=== PATIENT | female | born 1960 | race African-American/Black ===

== ENCOUNTER 2016-09-19 13:56 | Emergency (ER) | payer OTHER ==
[2016-09-19] MEDS ORDERED: Acetaminophen 500 MG TAB ONE (14:45)
--- NOTE | 2016-09-19 15:14 | ERRECORD ---
[facility] EMERGENCY RECORD HPI HEAD INJURY (14:33 JROB) CHIEF COMPLAINT: Patient presents for evaluation of head injury. HISTORIAN: History provided by patient, 56 year old female was at work at [employer] when she was struck in the head by a piece of metal siding that had become dislodged in high winds. She was knocked backwards, but did not fall to the ground, did not lose consciousness. She suffered a bruise and scrape to the forehead. She does not take blood thinners. Denies neck or back pain. Last tetanus was , 5 yrs ago. MECHANISM OF INJURY: Mechanism of injury: Blunt trauma. LOCATION: Symptoms are localized, most severe in the frontal region. SEVERITY: Current severity of pain rated as 5/10. TIME COURSE: Sudden onset of symptoms, 3, hours prior to arrival. ASSOCIATED WITH: No associated dizziness, Associated with headache, Associated with injury, No associated loss of consciousness, Associated with nausea, no associated siezure, No associated vomiting. EXACERBATED BY: Patient's condition exacerbated by palpation. RELIEVED BY: Patient's condition relieved by nothing, Patient's condition relieved by nothing because patient has not tried anything for relief. ROS (14:36 JROB) CONSTITUTIONAL: Historian denies weakness. EYES: Historian denies vision changes. ENT: Historian denies epistaxis. CARDIOVASCULAR: Historian denies chest pain, denies syncope. RESPIRATORY: Historian denies shortness of breath. GI: Historian reports nausea, denies vomiting. MUSCULOSKELETAL: Historian denies back pain, denies neck pain. SKIN: abrasion. NEUROLOGIC: Historian reports headache, denies mental status changes. HEMO/LYMPHATIC: Historian denies abnormal blood clotting. ALLERGIC/IMMUNOLOGIC: Historian denies frequent infections. NOTES: All systems reviewed, negative except as described above. PAST MEDICAL HISTORY MEDICAL HISTORY: Flu vaccine up to date, Tetanus not up to date, Past medical history includes history of hyperlipidemia, high cholesterol, Past medical history includes history of hypertension. (14:04 CAWO) FEMALE SURGICAL HISTORY: Surgical history of appendectomy, Surgical history of orthopedic surgery, right leg, Surgical history of tubal ligation. (14:04 CAWO) PSYCHIATRIC HISTORY: No previous psychiatric history. (14:04 CAWO) SOCIAL HISTORY: Patient drinks every day, Patient denies drug use, Patient currently uses tobacco, smokes cigarettes, Lives at &a-1R&a+25V*p+0X*l0034X*c202B*c15G*c2P*p-0X&a-25V&a+1R Name: Penelope Ding : 1960 F56 MedRec: [id number] AcctNum: [id number] Prepared: Collette Sep 19, 2016 15:16 by Interface Page 1 of 3 pMD [facility] EMERGENCY RECORD home, with family. (14:04 CAWO) NOTES: Nursing records reviewed, Agree with nursing records, Medication list reviewed. (14:38 JROB) KNOWN ALLERGIES latex gloves penicillin G sodium Sulfa (Sulfonamide Antibiotics) CURRENT MEDICATIONS Crestor: TABLET : Strength - 10 mg : ORAL Patient Dose: uk. (14:03 CAWO) amLODIPine: TABLET : Strength - 10 mg : ORAL Patient Dose: unk mg Oral once a day. (14:04 CAWO) VITAL SIGNS VITAL SIGNS: BP: 185/86, Pulse: 103, Resp: 16, Temp: 98.8 (Oral), Pain: 5, O2 sat: 98 on Room Air, Time: 09/19/2016 14:01. (14:01 CAWO) BP: 163/73, Pulse: 102, Resp: 18, Temp: 98.8 (Oral), Pain: 4, O2 sat: 99 on Room Air, Time: 09/19/2016 14:58. (14:58 CAWO) PHYSICAL EXAM (14:36 JROB) CONSTITUTIONAL: Vital Signs Reviewed, Pulse, tachycardic, Blood pressure, hypertensive, Patient alert and oriented to person, place and time. HEAD: no Burns's sign, No racoon sign, No Lacerations, 1cm abrasion ro left frontal forehead with mild surrounding swelling and tenderness extending to mid frontal forehead. No depressions. No Scalp is otherwise non-tender, no tenderness over bony orbits bilaterally. EYES: Pupils equally round and reactive to light, Extraocular muscles intact. ENT: Pharynx exam normal, Mouth exam normal. NECK: Neck exam normal. RESPIRATORY CHEST: Breath sounds clear, No wheezing, No rales, No rhonchi. CARDIOVASCULAR: Cardiovascular assessment normal, Cardiovascular exam included findings of heart rate regular rate and rhythm. BACK: Back exam normal, Back exam included findings of normal inspection, no tenderness. UPPER EXTREMITY: Upper extremity exam normal, Upper extremity exam included findings of inspection normal, Motor strength normal, Sensation intact. LOWER EXTREMITY: Lower extremity exam normal, Lower extremity exam included findings of inspection normal, Motor strength normal, Sensation intact. NEURO: Neuro exam findings include patient oriented to person, &a-1R&a+25V*p+0X*m6024M*c202B*c15G*c2P*p-0X&a-25V&a+1R Name: Penelope Ding : 1960 F56 MedRec: [id number] AcctNum: [id number] Prepared: Collette Sep 19, 2016 15:16 by Interface Page 2 of 3 pMD [facility] EMERGENCY RECORD place and time, no focal motor deficits, no focal sensory deficits, no cerebellar deficits. SKIN: Skin exam included findings of skin warm, dry. MEDICATION ADMINISTRATION SUMMARY Drug Name: Tylenol Extra Strength, Dose Ordered: 1 g, Route: Oral, Status: Given, Time: 14:47 09/19/2016, Detailed record available in Medication Service section. DOCTOR NOTES TEXT: History and exam is consistent with forehead contusion with small abrasion. No concern for underlying skull fracture or brain injury. Patient reassured. History of HTN, takes BP meds at night. Hypertensive on arrival, mild tachycardia. Will give Tylenol for headache, reassess. She is otherwise asymptomatic with the HTN. (14:40 JROB) Reassessed, heart rate and blood pressure somewhat improved. Patient states that her heart rate is frequently around 100. Will d/c home to f/u in clinic. (15:00 JROB) PATIENT STATUS: Patient has improved since arrival to emergency department. (15:00 JROB) PATIENT PLAN: The patient will be discharged, The patient will follow up with primary care physician. (15:00 JROB) PROBLEM LIST No recorded problems DIAGNOSIS DIFFERENTIAL: Based on history, exam and ancillary studies if indicated: Impression: closed head injury, Impression: scalp contusion (s), Impression: Abrasion, Impression: asymptomatic hypertension, Impression: medication change/noncompliance, Diagnoses considered are not limited to those documented above. (15:01 JROB) FINAL: PRIMARY: Forehead Contusion, ADDITIONAL: Forehead Abrasion, Hypertension. (15:02 JROB) PRESCRIPTION No recorded prescriptions DISPOSITION PATIENT: Disposition Type: Discharge, Disposition: *Discharge Home. (15:02 JROB) Patient left the department. (15:10 CAWO) Kulkarni: CAWO=DANK Castle, Yuni JROB=MD Romero, Paco &a-1R&a+25V*p+0X*r7723P*c202B*c15G*c2P*p-0X&a-25V&a+1R Name: Penelope Ding : 1960 F56 MedRec: [id number] AcctNum: [id number] Prepared: Collette Sep 19, 2016 15:16 by Interface Page 3 of 3 pMD MTDD
--- NOTE | 2016-09-19 15:19 | PICIS ---
[facility] EMERGENCY RECORD TRIAGE (14:03 CAWO) TRIAGE NOTES: PT reports "metal piece" at work fell on the left frontal part of her head. NO LOC. (14:03 CAWO) PATIENT: NAME: Penelope Ding, AGE: 56, GENDER: female, : Tue1960, TIME OF GREET: Sun Sep 19, 2016 13:56, PREFERRED LANGUAGE: Amharic, ETHNICITY: Not or , ECODE BILLING MAP: [facility], SSN: [id number], Zip Code: [address], KG WEIGHT: 72.57, PHONE: , , , PERSON ID: [id number], PCP: MD Colindres Katherine. (14:03 CAWO) COMPLAINT: HIGH RISK COMPLAINT: Head Injury. (14:03 CAWO) ADMISSION: URGENCY: 4 Non Urgent, ADMISSION SOURCE: Home, TRANSPORT: CAR, BED: ER -05. (14:03 CAWO) IMMUNIZATIONS: Flu vaccine up to date, Tetanus not up to date, Pneumococcal vaccine not up to date. (14:04 CAWO) SIRS SCORING: Heart Rate 55-109 (0), Temp range 96.8-101.1 (0), respiratory rate 12-24 (0), Mental Status altered: no (0), Infection or Suspected Infection: No. (14:04 CAWO) TRIAGE SCREENING: Patient denies suicidal ideation, Patient denies presence of domestic violence. (14:04 CAWO) LMP: LMP: Menopause. (14:04 CAWO) TREATMENTS IN PROGRESS: Treatments given Prehospital: none. (14:04 CAWO) PROVIDERS: TRIAGE NURSE: Yuni Castle RN. (14:03 CAWO) VITAL SIGNS: BP 185/86, Pulse 103, Resp 16, Temp 98.8, (Oral), Pain 5, O2 Sat 98, on Room Air, Time 09/19/2016 14:01. (14:01 CAWO) PREVIOUS VISIT ALLERGIES: latex gloves, penicillin G sodium, Sulfa (Sulfonamide Antibiotics). (14:03 CAWO) latex gloves, penicillin G sodium, Sulfa (Sulfonamide Antibiotics). (14:04 CAWO) KNOWN ALLERGIES latex gloves penicillin G sodium Sulfa (Sulfonamide Antibiotics) CURRENT MEDICATIONS Crestor: TABLET : Strength - 10 mg : ORAL Patient Dose: uk. (14:03 CAWO) amLODIPine: TABLET : Strength - 10 mg : ORAL Patient Dose: unk mg Oral once a day. (14:04 CAWO) VITAL SIGNS VITAL SIGNS: BP: 185/86, Pulse: 103, Resp: 16, Temp: 98.8 (Oral), Pain: 5, O2 sat: 98 on Room Air, Time: 09/19/2016 14:01. (14:01 CAWO) BP: 163/73, Pulse: 102, Resp: 18, Temp: 98.8 (Oral), Pain: 4, O2 sat: 99 on Room Air, Time: 09/19/2016 14:58. (14:58 CAWO) &a-1R&a+25V*p+0X*o4495L*c202B*c15G*c2P*p-0X&a-25V&a+1R Name: Penelope Ding : 1960 F56 MedRec: [id number] AcctNum: [id number] Prepared: Collette Sep 19, 2016 15:15 by Interface Page 1 of 6 pMD [facility] EMERGENCY RECORD NURSING ASSESSMENT: HEADACHE (14:07 CAWO) CONSTITUTIONAL: Complex assessment performed, Patient arrives ambulatory, Gait steady, History obtained from patient, Patient appears comfortable, Patient cooperative, Patient alert, Oriented to person, place and time, Skin warm, Skin dry, Skin normal in color, Mucous membranes pink, Mucous membranes moist, Patient is well-groomed, Patient complains of head injury, PT arrives with c/o headache s/p being hit on the head by "a piece of metal". PT denies LOC. PT in nad. HEADACHE: Headache assessment findings include headache not worst of life, no history of migraines. NEURO: Pupils equally round and reactive to light, Able to close eyes, Face symmetrical, Speech normal, no ptosis, no nystagmus, no visual changes, no facial droop, no facial numbness, no swelling, no paresthesias, GCS:, Eye opening: (4) - Spontaneous, Verbal: (5) - Oriented/conversive, Motor: (6) - Obeys commands/Spontaneous, Upper extremity strength strong, no associated dizziness present, no associated fever, no associated memory loss, no associated loss of consciousness, no associated motor ability changes, no associated neck stiffness, no associated nausea, no associated alterations in sensation, no associated personality changes, no associated posturing, no associated seizures, no associated syncopal episode, no associated vomiting, no associated weakness, Notes: small wound to left front of forehead, less than 0.1 cm, bleeding controlled. ENT: Nasal assessment findings include nose normal to inspection, Sinuses normal, Nasal mucosa normal, Mouth and throat assessment findings include mouth inspection normal, Uvula normal, Tonsils normal, Mucous membranes pink, and moist, Able to swallow, Speech normal, no associated fever, Associated with headache, no associated decrease in oral intake. SAFETY: Side rails up, Cart/Stretcher in lowest position, Family at bedside, Call light within reach, Hospital ID band on. NURSING PROCEDURE: DISCHARGE NOTE (15:07 CAWO) DISCHARGE: Patient discharged to home, ambulating without assistance, family driving, accompanied by //partner, Summary of Care printed/ provided, Transition record given to patient, Discharge instructions given to patient, Simple or moderate discharge teaching performed, Above person(s) verbalized understanding of discharge instructions and follow-up care, Patient treated and evaluated by physician. BELONGINGS: Belongings and valuables with patient upon arrival to the Emergency Department include:, Belongings and valuables with patient at time of discharge include:, Belongings remain with patient, Valuables remain with patient. MEDICATION ADMINISTRATION SUMMARY &a-1R&a+25V*p+0X*y9703V*c202B*c15G*c2P*p-0X&a-25V&a+1R Name: Penelope Ding : 1960 F56 MedRec: [id number] AcctNum: [id number] Prepared: Collette Sep 19, 2016 15:15 by Interface Page 2 of 6 pMD [facility] EMERGENCY RECORD Drug Name: Tylenol Extra Strength, Dose Ordered: 1 g, Route: Oral, Status: Given, Time: 14:47 09/19/2016, Detailed record available in Medication Service section. MEDICATION SERVICE (14:47 JROB) Tylenol Extra Strength: Order: Tylenol Extra Strength (acetaminophen) - Dose: 1 g : Oral Schedule: Now Ordered by: Paco Jasso MD Entered by: MD Collette Rojas Sep 19, 2016 14:39 , Acknowledged by: DANK Vazquez Sep 19, 2016 14:43 Documented as given by: DANK Vazquez Sep 19, 2016 14:47 Patient, Medication, Dose, Route and Time verified prior to administration. Amount given: 1g, Site: Medication administered P.O., Correct patient, time, route, dose and medication confirmed prior to administration, Patient advised of actions and side-effects prior to administration, Allergies confirmed and medications reviewed prior to administration. HPI HEAD INJURY (14:33 JROB) CHIEF COMPLAINT: Patient presents for evaluation of head injury. HISTORIAN: History provided by patient, 56 year old female was at work at [employer] when she was struck in the head by a piece of metal siding that had become dislodged in high winds. She was knocked backwards, but did not fall to the ground, did not lose consciousness. She suffered a bruise and scrape to the forehead. She does not take blood thinners. Denies neck or back pain. Last tetanus was , 5 yrs ago. MECHANISM OF INJURY: Mechanism of injury: Blunt trauma. LOCATION: Symptoms are localized, most severe in the frontal region. SEVERITY: Current severity of pain rated as 5/10. TIME COURSE: Sudden onset of symptoms, 3, hours prior to arrival. ASSOCIATED WITH: No associated dizziness, Associated with headache, Associated with injury, No associated loss of consciousness, Associated with nausea, no associated siezure, No associated vomiting. EXACERBATED BY: Patient's condition exacerbated by palpation. RELIEVED BY: Patient's condition relieved by nothing, Patient's condition relieved by nothing because patient has not tried anything for relief. ROS (14:36 JROB) CONSTITUTIONAL: Historian denies weakness. EYES: Historian denies vision changes. ENT: Historian denies epistaxis. CARDIOVASCULAR: Historian denies chest pain, denies syncope. RESPIRATORY: Historian denies shortness of breath. GI: Historian reports nausea, denies vomiting. &a-1R&a+25V*p+0X*z1934M*c202B*c15G*c2P*p-0X&a-25V&a+1R Name: Penelope Ding : 1960 F56 MedRec: [id number] AcctNum: [id number] Prepared: Collette Sep 19, 2016 15:15 by Interface Page 3 of 6 pMD [facility] EMERGENCY RECORD MUSCULOSKELETAL: Historian denies back pain, denies neck pain. SKIN: abrasion. NEUROLOGIC: Historian reports headache, denies mental status changes. HEMO/LYMPHATIC: Historian denies abnormal blood clotting. ALLERGIC/IMMUNOLOGIC: Historian denies frequent infections. NOTES: All systems reviewed, negative except as described above. PAST MEDICAL HISTORY MEDICAL HISTORY: Flu vaccine up to date, Tetanus not up to date, Past medical history includes history of hyperlipidemia, high cholesterol, Past medical history includes history of hypertension. (14:04 CAWO) FEMALE SURGICAL HISTORY: Surgical history of appendectomy, Surgical history of orthopedic surgery, right leg, Surgical history of tubal ligation. (14:04 CAWO) PSYCHIATRIC HISTORY: No previous psychiatric history. (14:04 CAWO) SOCIAL HISTORY: Patient drinks every day, Patient denies drug use, Patient currently uses tobacco, smokes cigarettes, Lives at home, with family. (14:04 CAWO) NOTES: Nursing records reviewed, Agree with nursing records, Medication list reviewed. (14:38 JROB) PHYSICAL EXAM (14:36 JROB) CONSTITUTIONAL: Vital Signs Reviewed, Pulse, tachycardic, Blood pressure, hypertensive, Patient alert and oriented to person, place and time. HEAD: no Burns's sign, No racoon sign, No Lacerations, 1cm abrasion ro left frontal forehead with mild surrounding swelling and tenderness extending to mid frontal forehead. No depressions. No Scalp is otherwise non-tender, no tenderness over bony orbits bilaterally. EYES: Pupils equally round and reactive to light, Extraocular muscles intact. ENT: Pharynx exam normal, Mouth exam normal. NECK: Neck exam normal. RESPIRATORY CHEST: Breath sounds clear, No wheezing, No rales, No rhonchi. CARDIOVASCULAR: Cardiovascular assessment normal, Cardiovascular exam included findings of heart rate regular rate and rhythm. BACK: Back exam normal, Back exam included findings of normal inspection, no tenderness. UPPER EXTREMITY: Upper extremity exam normal, Upper extremity exam included findings of inspection normal, Motor strength normal, Sensation intact. LOWER EXTREMITY: Lower extremity exam normal, Lower extremity exam included findings of inspection normal, Motor strength normal, Sensation intact. &a-1R&a+25V*p+0X*x4112S*c202B*c15G*c2P*p-0X&a-25V&a+1R Name: Penelope Ding : 1960 F56 MedRec: [id number] AcctNum: [id number] Prepared: Collette Sep 19, 2016 15:15 by Interface Page 4 of 6 pMD [facility] EMERGENCY RECORD NEURO: Neuro exam findings include patient oriented to person, place and time, no focal motor deficits, no focal sensory deficits, no cerebellar deficits. SKIN: Skin exam included findings of skin warm, dry. EVENTS TRANSFER: Triage to Emergency Emergency Room -05. (Collette Sep 19, 2016 14:03 CAWO) Removed from Emergency Emergency Room -05. (15:10 CAWO) O2SAT INTERPRETATION (14:38 JROB) O2SAT: Single pulse oximetry, Oxygen saturation 98%, on room air, Oxygen saturation interpretation: Normal, No intervention required. DOCTOR NOTES TEXT: History and exam is consistent with forehead contusion with small abrasion. No concern for underlying skull fracture or brain injury. Patient reassured. History of HTN, takes BP meds at night. Hypertensive on arrival, mild tachycardia. Will give Tylenol for headache, reassess. She is otherwise asymptomatic with the HTN. (14:40 JROB) Reassessed, heart rate and blood pressure somewhat improved. Patient states that her heart rate is frequently around 100. Will d/c home to f/u in clinic. (15:00 JROB) PATIENT STATUS: Patient has improved since arrival to emergency department. (15:00 JROB) PATIENT PLAN: The patient will be discharged, The patient will follow up with primary care physician. (15:00 JROB) PROBLEM LIST No recorded problems DIAGNOSIS DIFFERENTIAL: Based on history, exam and ancillary studies if indicated: Impression: closed head injury, Impression: scalp contusion (s), Impression: Abrasion, Impression: asymptomatic hypertension, Impression: medication change/noncompliance, Diagnoses considered are not limited to those documented above. (15:01 JROB) FINAL: PRIMARY: Forehead Contusion, ADDITIONAL: Forehead Abrasion, Hypertension. (15:02 JROB) DISPOSITION PATIENT: Disposition Type: Discharge, Disposition: *Discharge Home. (15:02 JROB) Patient left the department. (15:10 CAWO) INSTRUCTION (15:03 JROB) DISCHARGE: HEAD INJURY, NO WAKE-UP (ADULT), HIGH BLOOD PRESSURE ESTABLISHED OUT OF CONTROL. &a-1R&a+25V*p+0X*h9683C*c202B*c15G*c2P*p-0X&a-25V&a+1R Name: TimurPenelope : 1960 6 MedRec: [id number] AcctNum: [id number] Prepared: Collette Sep 19, 2016 15:15 by Interface Page 5 of 6 pMD [facility] EMERGENCY RECORD FOLLOWUP: MD Jens, [facility], [address] [place] [address] [facility] [address], , Follow up with Primary Care Physician in 2-3 days. SPECIAL: Follow-up with your PCP We hope you feel better soon! We are always happy to take care of you and your family! Return to the ER immediately for any new, concerning, or worsening symptoms. PRESCRIPTION No recorded prescriptions IMAGING (15:10 CAWO) *DISCHARGE INSTRUCTIONS RECEIPT: Image captured from scanner. *SUPPLY CHARGE SHEET: Image captured from scanner. ADMIN (15:03 JROB) DIGITAL SIGNATURE: MD Jasso Joseph. Kulkarni: CAWO=DANK Castle, Yuni JROB=MD Jasso Joseph &a-1R&a+25V*p+0X*d3257Q*c202B*c15G*c2P*p-0X&a-25V&a+1R Name: SimonPenelope mendes : 1960 F56 MedRec: [id number] AcctNum: [id number] Prepared: Collette Sep 19, 2016 15:15 by Interface Page 6 of 6 pMD MTDD
== END 2016-09-19 15:05 | disposition home or self-care (01) ==
LOC: NAV ERS 13:56
DX: S00.83XA Contusion of other part of head, initial encounter (principal); I10 Essential (primary) hypertension; E78.5 Hyperlipidemia, unspecified; E78.00 Pure hypercholesterolemia, unspecified; F17.210 Nicotine dependence, cigarettes, uncomplicated; W22.8XXA Striking against or struck by other objects, initial encounter
CPT/HCPCS: 99283

== ENCOUNTER 2016-09-27 12:47 | Emergency (ER) | payer OTHER ==
[2016-09-27] MEDS ORDERED: Cyclobenzaprine 10 MG TAB ONE (13:39)
[2016-09-27] MEDS ORDERED: HYDROcodone/Acetaminophen 5/325 mg Tablet ONE (13:39)
[2016-09-27] MEDS ORDERED: Ketorolac Tromethamine 60 MG/2 ML VIAL ONE (13:39)
--- NOTE | 2016-09-27 14:34 | CT ---
EXAM: NONCONTRAST HEAD CT: HISTORY: The patient hit left side of alevism last week. The patient is having constant headaches. COMPARISON: None. TECHNIQUE: A noncontrast head CT is performed from the skull base to the skull vertex. FINDINGS: No parenchymal hemorrhage. No extraaxial hematoma. No midline shift. Basilar cisterns are patent. Age-appropriate atrophy. Cortical bobby-white matter differentiation is preserved. Ventricles and sulci are patent and symmetric. Hypoattenuation of the left helton radiata likely due to chronic small-vessel ischemic disease. Calvarium is intact. Adequate aeration of the sinuses and mastoid air cells. IMPRESSION: No acute intracranial process. No intracranial posttraumatic sequelae. POS: H
--- NOTE | 2016-09-27 15:14 | ERRECORD ---
[facility] EMERGENCY RECORD HPI HEAD INJURY (14:29 AGRE) CHIEF COMPLAINT: Patient presents for evaluation of head injury. HISTORIAN: History provided by patient, SOME METAL FELL AND HIT HER ON THE LEFT SIDE OF HER HEAD AT WORK LAST WEEK. NO LOC, VOMITING, CONFUSION OR OTHER NEURO SYMPTOMS EXCEPT HEADACHE. 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 HERE TODAY BECAUSE THE KEVIN IS WORST AND THE TYLENOL WITH CODEINE THEY GAVE HER IS NOT WORKING. NO NEW NEURO CHANGE. MECHANISM OF INJURY: Mechanism of injury: Blunt trauma, by direct blow. LOCATION: Symptoms are localized, most severe in the frontal region. QUALITY: Pain is dull in nature, described as aching, described as throbbing. SEVERITY: Maximum severity of symptoms moderate, Currently symptoms are moderate. TIME COURSE: are constant. ASSOCIATED WITH: No associated blurred vision, No associated dizziness, No associated fever, Associated with headache, Associated with injury, No associated loss of consciousness, No associated nausea, No associated numbness, No associated open wounds, [place] coma score of 15, Denies any other complaints. EXACERBATED BY: Patient's condition exacerbated by nothing. RELIEVED BY: Patient's condition relieved by nothing. ROS (14:32 AGRE) CONSTITUTIONAL: Historian denies chills, denies fever, denies lethargy, denies malaise. EYES: Historian denies eye pain, denies eye redness. ENT: Historian denies rhinorrhea, denies sinus pain, denies sore throat. CARDIOVASCULAR: Historian denies chest pain, denies dyspnea on exertion. RESPIRATORY: Historian denies cough, denies shortness of breath. GI: Historian denies abdominal pain, denies nausea, denies vomiting. MUSCULOSKELETAL: Historian denies back pain, denies neck pain. SKIN: Negative skin review of systems, Historian denies skin changes, denies skin lesions. NEUROLOGIC: Historian denies confusion, denies dizziness, denies dysphasia, denies focal weakness, denies gait changes, reports headache, denies lethargy, denies mental status changes, denies paralysis, denies paresthesias, denies seizures, denies sensory changes, denies speech changes. PSYCHIATRIC: Negative psychiatric review of systems, Historian denies anxiety. PAST MEDICAL HISTORY (13:11 GHIA) MEDICAL HISTORY: Notes: as lsited, Flu vaccine up to date, Tetanus not up to date, Past medical history includes &a-1R&a+25V*p+0X*c1202A*c202B*c15G*c2P*p-0X&a-25V&a+1R Name: Penelope Ding : 1960 F56 MedRec: [id number] AcctNum: [id number] Prepared: TueSep 27, 2016 14:41 by Interface Page 1 of 4 pMD [facility] EMERGENCY RECORD history of hyperlipidemia, high cholesterol, Past medical history includes history of hypertension. FEMALE SURGICAL HISTORY: as lsited, Surgical history of appendectomy, Surgical history of orthopedic surgery, right leg, Surgical history of tubal ligation. PSYCHIATRIC HISTORY: No previous psychiatric history, No previous psychiatric history. SOCIAL HISTORY: Social History includes lives with family, Patient drinks every day, Patient denies drug use, Patient currently uses tobacco, smokes cigarettes, Occasional or some day smoker, Patient drinks every day, Patient denies drug use, Patient currently uses tobacco, smokes cigarettes, Lives at home, with family. KNOWN ALLERGIES latex gloves (Unconfirmed) penicillin G sodium (Unconfirmed) Sulfa (Sulfonamide Antibiotics) (Unconfirmed) CURRENT MEDICATIONS No recorded medications VITAL SIGNS VITAL SIGNS: BP: 178/79, Pulse: 100, Resp: 17, Temp: 98.4 (Oral), Pain: 5, O2 sat: 96 on Room Air, Time: 09/27/2016 13:02. (13:02 GHIA) BP: 152/97, Pulse: 87, Resp: 17, Pain: 5, O2 sat: 95 on Room Air, Time: 09/27/2016 13:51. (13:51 GHIA) BP: 154/74, Pulse: 94, Resp: 17, Pain: 5, O2 sat: 95 on RA, Time: 09/27/2016 14:29. (14:29 GHIA) PHYSICAL EXAM (14:33 AGRE) CONSTITUTIONAL: Vital signs reviewed, Patient afebrile, Patient appears non toxic, Patient appears pain free, Patient alert and oriented to person, place and time, NURSES NOTES REVIEWED. HEAD: no Burns's sign, No racoon sign, contusion, Contusion to left frontal, no abrasions, No Lacerations. EYES: Pupils equally round and reactive to light, no periorbital ecchymosis, no periorbital edema, no periorbital erythema, Eye exam included findings of eyelids normal to inspection, Extraocular muscles intact, Conjunctiva normal, Sclera normal. ENT: Ear exam normal, Nose exam normal, Mouth exam normal. NECK: no tenderness, Neck exam included findings of normal range of motion, no meningeal signs. RESPIRATORY CHEST: Respiratory exam included findings of no respiratory distress, Breath sounds clear, Chest exam included findings of chest movement symmetrical. CARDIOVASCULAR: Cardiovascular exam included findings of heart rate regular rate and rhythm. BACK: Back exam included findings of normal inspection, range of motion normal. &a-1R&a+25V*p+0X*x2522I*c202B*c15G*c2P*p-0X&a-25V&a+1R Name: Penelope Ding Alec : 1960 F56 MedRec: [id number] AcctNum: [id number] Prepared: TueSep 27, 2016 14:41 by Interface Page 2 of 4 pMD [facility] EMERGENCY RECORD UPPER EXTREMITY: Upper extremity exam included findings of inspection normal, Range of motion normal. LOWER EXTREMITY: Lower extremity exam included findings of inspection normal, Range of motion normal. NEURO: Neuro exam normal, [place] coma scale 15, Neuro exam findings include patient oriented to person, place and time, Speech normal, Gait normal, Memory normal, Cranial nerves intact, Deep tendon reflexes normal, no focal motor deficits, no focal sensory deficits, no cerebellar deficits, no nystagmus. SKIN: Skin exam included findings of skin warm, dry, and normal in color. PSYCHIATRIC: Psychiatric exam normal, Normal affect. 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 MEDICATION ADMINISTRATION SUMMARY Drug Name: ketorolac intramuscular, Dose Ordered: 60 mg, Route: Intramuscular, Status: Given, Time: 13:49 09/27/2016, Drug Name: HYDROcodone-acetaminophen, Dose Ordered: 5/325 tab(s), Route: Oral, Status: Given, Time: 13:47 09/27/2016, Drug Name: Flexeril, Dose Ordered: 10 mg, Route: Oral, Status: Given, Time: 13:47 09/27/2016, Detailed record available in Medication Service section. DOCTOR NOTES (14:35 AGRE) TEXT: DISCUSSED WITH PATIENT AND PUBLIC INFORMATION COORDINATOR FINDINGS ON EXAM AND CT SCAN. ADVISED ON MANAGEMENT OF THE PAIN AND NEED FOR FOLLOW UP. ADVISED PAIN MAY BE FROM INFLAMMATION OF MUSCULATURE. SHE EXPRESSED UNDERSTANDING AND AGREEMENT. PATIENT STATUS: Patient has improved since arrival to emergency department. PATIENT PLAN: The patient will be discharged. DATA REVIEWED: Xray data reviewed, Discussed with family. PROBLEM LIST No recorded problems DIAGNOSIS (14:03 AGRE) FINAL: PRIMARY: POST TRAUMATIC CEPHALGIA. PRESCRIPTION (14:04 AGRE) Robaxin oral: TABLET : 500 mg : ORAL : Quantity: 2 Unit: tab(s) Route: ORAL Schedule: every 6 hours PRN Dispense: 40 May substitute. Refills: No Refills . NOTES: PRN MUSCLE SPASMS No Refills. &a-1R&a+25V*p+0X*i7237M*c202B*c15G*c2P*p-0X&a-25V&a+1R Name: Penelope Ding : 1960 F56 MedRec: [id number] AcctNum: [id number] Prepared: TueSep 27, 2016 14:41 by Interface Page 3 of 4 pMD [facility] EMERGENCY RECORD DISPOSITION PATIENT: Disposition Type: Discharge, Disposition: *Discharge Home, Condition: Improved. (14:03 TIANNA) Patient left the department. (14:35 MACARIO) Kulkarni: TIANNA=MD Livan, Reji SORTO=DANK Jack, Mona &a-1R&a+25V*p+0X*[id number]*c202B*c15G*c2P*p-0X&a-25V&a+1R Name: Penelope Ding : 1960 F56 MedRec: [id number] AcctNum: [id number] Prepared: TueSep 27, 2016 14:41 by Interface Page 4 of 4 pMD MTDD
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
== END 2016-09-27 14:29 | disposition home or self-care (01) ==
LOC: NAV ERS 12:47
DX: G44.309 Post-traumatic headache, unspecified, not intractable (principal); E78.00 Pure hypercholesterolemia, unspecified; E78.5 Hyperlipidemia, unspecified; I10 Essential (primary) hypertension; W20.8XXA Other cause of strike by thrown, projected or falling object, initial encounter; Y92.69 Other specified industrial and construction area as the place of occurrence of the external cause; Y99.0 Civilian activity done for income or pay
CPT/HCPCS: 70450; 96372; J1885

== ENCOUNTER 2017-06-07 15:29 | Emergency (ER) | payer BC, OTHER ==
[2017-06-07] MEDS ORDERED: predniSONE 20 MG TAB ONE (15:48)
[2017-06-07] MEDS ORDERED: diphenhydrAMINE HCl 50 MG/ML 1 ML VIAL ONE (15:48)
== END 2017-06-07 16:32 | disposition home or self-care (01) ==
LOC: NAV ERS 15:29
DX: T78.40XA Allergy, unspecified, initial encounter (principal); E78.5 Hyperlipidemia, unspecified; I10 Essential (primary) hypertension; F17.210 Nicotine dependence, cigarettes, uncomplicated; Z79.899 Other long term (current) drug therapy
CPT/HCPCS: 96372; J1200; J7506

== ENCOUNTER 2017-10-11 15:43 | Emergency (ER) | payer BC, OTHER, SELFPAY ==
[2017-10-11] MEDS ORDERED: Ketorolac Tromethamine 60 MG/2 ML VIAL ONE (16:08)
[2017-10-11] MEDS ORDERED: Cyclobenzaprine 10 MG TAB ONE (16:08)
== END 2017-10-11 16:25 | disposition home or self-care (01) ==
LOC: NAV ERS 15:43
DX: S39.012A Strain of muscle, fascia and tendon of lower back, initial encounter (principal); S29.012A Strain of muscle and tendon of back wall of thorax, initial encounter; I10 Essential (primary) hypertension; E78.5 Hyperlipidemia, unspecified; F17.210 Nicotine dependence, cigarettes, uncomplicated; Z71.6 Tobacco abuse counseling; Z79.899 Other long term (current) drug therapy; V89.2XXA Person injured in unspecified motor-vehicle accident, traffic, initial encounter
CPT/HCPCS: 96372; 99406; J1885

== ENCOUNTER 2017-10-14 12:01 | Outpatient (CLI) | payer BC ==
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
== END 2017-10-14 12:02 | disposition home or self-care (01) ==
LOC: NAV RAD 12:01
PROVIDERS: ATTEND Family Medicine
DX: M54.9 Dorsalgia, unspecified (principal)
CPT/HCPCS: 72040; 72072; 72100

== ENCOUNTER 2019-05-30 15:44 | Outpatient (CLI) | payer BC ==
--- NOTE | 2019-05-30 16:14 | RAD ---
XR Hip Lt 2-3 View: 05/30/2019 4:05 PM CLINICAL INDICATION: Pain COMPARISON: None. FINDINGS: Fracture:No fracture. Arthropathy:Mild degenerative changes of the imaged left hemipelvis. Incidental findings:Pelvic phleboliths. IMPRESSION: 1. No acute osseous abnormality. 2. Mild osteoarthritis.
--- NOTE | 2019-05-30 16:24 | RAD ---
RIGHT HIP: 05/30/19 Two views. HISTORY: Hip pain. No evidence of fracture. Very mild degenerative change noted with minimal spurring from the femoral h ead. IMPRESSION: No acute abnormality. POS: OFF
== END 2019-05-30 15:45 | disposition home or self-care (01) ==
LOC: NAV RAD 15:44
PROVIDERS: ATTEND Family Medicine
DX: M25.551 Pain in right hip (principal); M25.552 Pain in left hip; M16.12 Unilateral primary osteoarthritis, left hip

== ENCOUNTER 2020-10-09 10:09 | Outpatient (CLI) | payer BC ==
--- NOTE | 2020-10-09 10:33 | RAD ---
Lumbar spine: 3 views INDICATIONS:Low back pain COMPARISON:10/14/2017 films FINDINGS: Vertebral bodies maintain normal height. Disc spaces of lumbar spine maintain normal height. Normal alignment is maintained. Failure mild spurring from the lumbar vertebra appear stable from prior exam. No soft tissue abnormality. IMPRESSION: Mild degenerative changes. Stable from prior exam.
== END 2020-10-09 10:10 | disposition home or self-care (01) ==
LOC: NAV RAD 10:09
PROVIDERS: ATTEND Family Medicine
DX: M54.42 Lumbago with sciatica, left side (principal); M47.816 Spondylosis without myelopathy or radiculopathy, lumbar region
CPT/HCPCS: 72100

== ENCOUNTER 2021-06-09 09:23 | Outpatient (CLI) | payer BC | END 2021-06-09 09:24 | disposition home or self-care (01) | LOC: NAV RAD 09:23 | PROVIDERS: ATTEND Family Medicine | DX: M25.552 Pain in left hip (principal) ==

== ENCOUNTER 2022-02-25 15:06 | Emergency (ER) | payer OTHER, BC | END 2022-02-25 16:27 | disposition home or self-care (01) | LOC: NAV ERS 15:06 | DX: S80.01XA Contusion of right knee, initial encounter (principal); W01.10XA Fall on same level from slipping, tripping and stumbling with subsequent striking against unspecified object, initial encounter; Y99.0 Civilian activity done for income or pay; E78.5 Hyperlipidemia, unspecified; E78.00 Pure hypercholesterolemia, unspecified; F17.210 Nicotine dependence, cigarettes, uncomplicated; Z79.899 Other long term (current) drug therapy ==

== ENCOUNTER 2024-01-02 21:01 | Emergency (ER) | payer BC ==
[2024-01-02 22:03] LABS: #Basophils 0.1 thou/uL (0.0-0.2); #Eosinphils 0.3 thou/uL (0.0-0.7); #Lymphocytes 2.5 thou/uL (1.20-3.40); #Monocytes 0.8 thou/uL (0.11-0.59); #Neutrophils 4.8 thou/uL (1.40-6.50); %Basophils 1.1 % (0.0-1.0); %Eosinophils 3.3 % (0.0-10.0); %Lymphocytes 29.2 % (21.0-51.0); %Monocytes 9.6 % (0.0-10.0); %Neutrophils 56.8 % (42.0-75.0); Hematocrit 35.2 % (36.0-47.0); Hemoglobin 11.1 g/dL (12.0-16.0); Mean Corpuscular HGB CONC 31.5 g/dL (32.0-36.0); Mean Corpuscular Volume 98.7 fl (78.0-98.0); Mean Platelet Volume 5.3 fL (7.4-10.4); Platelet Count 300 10x3/uL (130-400); RBC Distribution Width 12.8 % (11.5-14.5); Red Blood Cell (RBC) Count 3.57 mill/uL (4.20-5.40); White Blood Cell (WBC) Count 8.5 10x3/uL (4.8-10.8)
[2024-01-02] MEDS ORDERED: Aspirin Chewable 81 MG TAB ONE (22:06)
[2024-01-02] MEDS ORDERED: Ipratropium/Albuterol 3 ML NEB ONE (22:06)
[2024-01-02 22:19] LABS: ALT (SGPT) 11 U/L (8-55); AST (SGOT) 22 U/L (5-34); Alkaline Phosphatase 107 U/L (40-110); Anion Gap 18 mmol/L (10-20); BUN (Urea Nitrogen) 6 mg/dL (9.8-20.1); Bilirubin, Total 0.4 mg/dL (0.2-1.2); Calc. Creatinine Clearance 0 mL/min (70-130); Calcium 8.8 mg/dL (7.8-10.44); Carbon Dioxide 20 mmol/L (23-31); Chloride 96 mmol/L (98-107); Estimated GFR 89; Globulin 3.5 g/dL (2.4-3.5); Glucose 91 mg/dL (80-115); Protein, Total 7.5 g/dL (5.8-8.1); Sodium 130 mmol/L (136-145)
[2024-01-02 22:21] LABS: Troponin I 0.012 ng/mL (< 0.028)
[2024-01-03] MEDS ORDERED: LevoFLOXacin 750 MG TAB ONE (01:23)
== END 2024-01-03 01:40 | disposition home or self-care (01) ==
LOC: NAV ERS 21:01
DX: R09.02 Hypoxemia (principal); F10.129 Alcohol abuse with intoxication, unspecified; J98.11 Atelectasis; D64.9 Anemia, unspecified; R59.0 Localized enlarged lymph nodes; I10 Essential (primary) hypertension; C32.9 Malignant neoplasm of larynx, unspecified; F17.210 Nicotine dependence, cigarettes, uncomplicated; E78.5 Hyperlipidemia, unspecified; Z79.899 Other long term (current) drug therapy
CPT/HCPCS: 71275; 80053; 83880; 84484; 85025; 85379; 93005; 94640; 94760; J7620

== ENCOUNTER 2024-09-25 09:53 | Emergency (ER) | payer BC ==
[2024-09-25] MEDS ORDERED: HYDROcodone/Acetaminophen 5/325 mg Tablet ONE (10:50)
== END 2024-09-25 12:01 | disposition home or self-care (01) ==
LOC: NAV ERS 09:53
DX: S93.491A Sprain of other ligament of right ankle, initial encounter (principal); I10 Essential (primary) hypertension; F17.210 Nicotine dependence, cigarettes, uncomplicated; Z79.899 Other long term (current) drug therapy; W10.1XXA Fall (on)(from) sidewalk curb, initial encounter
CPT/HCPCS: 29515

== ENCOUNTER 2025-04-07 12:03 | Emergency (ER) | payer BC ==
[2025-04-07] MEDS ORDERED: Ketorolac Tromethamine 30 MG (1 mL) VIAL ONE (12:22)
== END 2025-04-07 13:51 | disposition home or self-care (01) ==
LOC: NAV ERS 12:03
DX: S22.31XA Fracture of one rib, right side, initial encounter for closed fracture (principal); I10 Essential (primary) hypertension; F17.210 Nicotine dependence, cigarettes, uncomplicated; Z79.899 Other long term (current) drug therapy; W19.XXXA Unspecified fall, initial encounter; Y92.003 Bedroom of unspecified non-institutional (private) residence as the place of occurrence of the external cause
CPT/HCPCS: 71250; 94799; 96372; J1885